=== PATIENT | male | born 1965 | race Caucasian/White ===

== ENCOUNTER 2016-06-17 14:35 | Emergency (ER) | payer OTHER ==
[2016-06-17] MEDS ORDERED: 2-OCTYL CYANOACRYLATE PEN TOP ONE (14:58)
--- NOTE | 2016-06-17 15:00 | EDPRACDOC ---
- General Information Information Source: Patient Home Medications: Home Medications Docusate Sodium [Doc-Q-Lace] 100 mg PO DAILY 05/16/15 Ferrous Sulfate [Iron] 487.5 mg PO DAILY 05/16/15 Lamotrigine [Lamictal] 50 mg PO QHS 05/16/15 Lamotrigine [Lamictal] 200 mg PO QAM 05/16/15 Lorazepam [Ativan] 0.5 mg PO DAILY PRN 05/16/15 Lubiprostone [Amitiza] 24 mcg PO BID 05/16/15 Trazodone HCl [Desyrel] 25 mg PO QHS PRN 05/16/15 Allergies/Adverse Reactions: Allergies Allergy/AdvReac Type Severity Reaction Status Date / Time codeine Allergy Nausea/Vomi Verified 05/16/15 11:48 ting meperidine HCl [From Demerol] Allergy Nausea/Vomi Verified 05/16/15 11:48 ting - History of 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 C/o laceration. R hand dominate. Tetanus Unknown. Denies numbness - Location Left Posterior Arm Mechanism: Reports: Metal - Tetanus Status Last Tetanus: No - Pain Pain Severity: None Bleeding: Reports: Controlled Associated Signs & Symptoms: Reports: None ED Past Medical History - History Reviewed Yes Nurses notes reviewed and agree except as marked - Social Medical History Smoking Status: Former smoker ETOH: None Substance Abuse: None EDM Review of Systems - Review of Systems Constitutional: No Symptoms Reported. negative: Fever, Chills, Weakness, Fatigue, Loss of Appetite Neurological: No Symptoms Reported. negative: Headache, Dizziness, Seizure, Numbness, Weakness, Speech Difficulty, Gait Difficulty Musculoskeletal: No Symptoms Reported. negative: Neck, Chestwall, Ribs, Back, Shoulder, Arm, Elbow, Forearm, Wrist, Hand, Pelvis, Hip, Femur, Knee, Leg, Ankle , Foot Integumentary: Wound Allergic/Immunologic: No Symptoms Reported. negative: Hives, Itching Hematologic: No Symptoms Reported. negative: Lymphadenopathy, Easy Bruising, Easy Bleeding Psychiatric: No Symptoms Reported. negative: Anxiety, Depression, Hallucinations, Insomnia, Suicidal - Physical Exam Constitutional: No apparent distress, Alert Oriented to: Time, Person, Place Last recorded Vital Signs: Oxygen Pulse Oxygen Saturation O2 Device Oxygen Flow Rate Fraction of Inspired Oxygen ( FIO2) - HEENT Head: Normal ( normocephalic) - Respiratory/Cardiovascular Respiratory: Normal - CTA (BBS clear to auscultation without adventitious sounds ) Cardiovascular: Normal (RRR without murmur, gallop or rub) - Musculoskeletal Extremities: Normal (Normal tone, Pulses 2+ No cyanosis or edema, FROM) - Integumentary Skin: Normal, Warm, Dry, Other (L posterior forearm 1 cm linear laceration) Lymphatics: Normal (no adenopathy) - Neurologic Memory Impaired: Normal Motor Function: Normal. negative: Abnormal, Unable to Test, Other Mood Description: Normal Perception: Normal ED Procedures - Suture/Laceration Suture #1 Left Posterior Volar Forearm Wound Length (cm): 1 Wound's Depth, Shape: linear Wound Explored: clean Irrigated w/ Saline (ccs): 50 Betadine Prep?: No Wound Repaired With: Dermabond - Differential Diagnosis Abrasion, Contusion, Laceration Decision Time to Discharge: 15:10 - Departure Disposition: Home Condition: Good Final Diagnosis: L forearm lac 1 cm simple Instructions: Laceration (ED), Skin Adhesive Care (ED) Education/Counseling Given To: Patient, Family Member Education/Counseling Given Regarding: Diagnosis, Treatment, Follow Up Referrals: Janina Khoury MD [Primary Care Provider] - One Week Additional Instructions: Return for worse or different symptoms.
[2016-06-17 15:05] VITALS: BP 152/92; PULSE 85; TEMP 97.9; BMI 27.9
[2016-06-17] MEDS ORDERED: TETANUS-DIPTHERIA-ACEL PERTUSS 0.5 ML SYR IM ONE (15:09)
== END 2016-06-17 15:43 | disposition home or self-care (01) ==
LOC: EDMC 14:35
DX: S51.812A Laceration without foreign body of left forearm, initial encounter (principal); W45.8XXA Other foreign body or object entering through skin, initial encounter; Y93.89 Activity, other specified; Y92.71 Barn as the place of occurrence of the external cause; Z23 Encounter for immunization
CPT/HCPCS: 12001; 90471; 90715; 99282; J3490